=== PATIENT | male | born 1960 | race Caucasian/White ===

== ENCOUNTER → 2021-08-11 | Outpatient (CLI) | payer OTHER ==
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
== END ==
LOC: RAD FS 11:00
PROVIDERS: ATTEND Nurse Practitioner
DX: M43.8X4 Other specified deforming dorsopathies, thoracic region (principal); M25.78 Osteophyte, vertebrae
CPT/HCPCS: 72072